=== PATIENT | male | born 1980 | race African-American/Black ===

== ENCOUNTER 2025-03-19 02:12 | Inpatient (IN) | payer OTHER, SELFPAY ==
[2025-03-18 22:46] VITALS: BP 169/135; BMI 32.7
[2025-03-18 23:09] LABS: Hematocrit 37.9 % (39.0-52.0); Hemoglobin 12.6 g/dL (13.0-18.0); Mean Corp Hgb Conc. 33.2 g/dL (33.0-37.0); Mean Corpuscular Volume 85.6 fL (80.0-94.0); Nucleated Red Blood Cells % 0 % (-); Platelet Count 390 10^3/uL (130-400); Red Cell Dist. Width 14.5 % (11.5-14.5)
[2025-03-18 23:31] LABS: ALT (SGPT) 132 U/L (0-50); AST (SGOT) 82 U/L (17-59); Albumin 3.9 g/dl (3.5-5.0); Alkaline Phosphatase 81 U/L (38-126); Blood Urea Nitrogen 18 mg/dl (9-20); Calcium 9.2 mg/dl (8.4-10.2); Carbon Dioxide 26 mmol/L (22-30); Chloride 105 mmol/L (98-107); Estimated Creatinine Clearance 119 ml/min; Glucose 133 mg/dl (70-99); Potassium 3.6 mmol/L (3.5-5.1); Sodium 137 mmol/L (135-145); Total Protein 6.6 g/dl (6.3-8.2); eGFR > 60.00
[2025-03-18 23:54] LABS: Troponin I 0.057 ng/ml
[2025-03-19] VITALS (10 sets, daily range): BP systolic 105–170; BP diastolic 62–127; BMI 30.8
--- NOTE | 2025-03-19 00:45 | ED.GENMED ---
History of Present Illness
General
Chief Complaint: Breathing Problem
Source: patient
Exam Limitations: none
Time Seen by Provider: 03/18/25 23:16
Nursing documentation reviewed up to this point in time: agreed with
History of Present Illness
History of Present Illness:
The patient is a pleasant 44-year-old man with past medical history of CHF who comes in with complaints of gradual onset worsening shortness of breath for about 5 days. Patient reports that just getting up and walking around makes him completely
short of breath, which is unusual for him. He also notes increased swelling of both of his legs. Patient is not sure why this happened. He reports that he is compliant with his medication. He denies chest pain and fever.
Past History
Past History
ED Past Medical History: CHF, HTN and Seizures
ED Past Surgical History: Cardiac
Social History
Tobacco: Other
Alcohol: Other
Drug: None
Personal: Other
Living: with family
Employment: Other
Family History
Family History: Other
Review of Systems
Review of Systems
Allergies reviewed?: Yes
All Other Systems: ROS reviewed and negative except as documented in HPI and ROS
EENT: Reports no symptoms
Respiratory: Reports trouble breathing
Cardiac: Reports no symptoms
ABD/GI: Reports no symptoms
: Reports no symptoms
Musculoskeletal: Reports edema
Skin: Reports no symptoms
Neurological: Reports no symptoms
Endocrine: Reports no symptoms
Hematologic/Lymphatic: Reports no symptoms
Psychiatric: Reports no symptoms
Phy Exam
Physical Exam
Physical Exam:
Physical Exam
General: no apparent distress, not acutely ill
Neck: supple. no meningeal signs. normal psoterior pharynx
Heart: s1/s2 regular rate and rhythm
Lungs: no acute respiratory distress. Bilateral basilar crackles
Abdomen: normal bowel sounds. not tender. no CVAT
Neuro: alert and oriented. no focal neurological deficits
Skin: no rash
Psychiatric: well kept. interactive and cooperative
Extremities: 1+ pitting edema bilateral lower extremities
Scores
Heart Failure Risk
Heart Failure Risk Score: Not Applicable
Sepsis
Sepsis Screening
Sepsis Assessment: Sepsis Ruled Out
Sepsis Screen
Sepsis Screen: Sepsis Ruled Out
Date: 03/19/25
Time: 00:57
Course
Orders/Labs/Results
Orders:
Orders
03/18/25 22:54
Electrocardiogram (*1) Urgent
Reason for Study: Other
Other Reason for Exam: Respiratory Distress
Cardiac Monitoring- Treatment ONCE
EKG- Treatment ONCE
IV Insert/Care/Rem.- Treatment PRN
CR Chest - 2 Views Urgent
Comment:
Reason For Exam: respiratory distress
O2 Therapy [RESP] Urgent
Titrate/Wean O2 to maintain O2 sat greater than (%): 93
Special Instructions: TO MAINTAIN CONTINUOUS O2 SATS >/= 93%
Pulse Ox/cont/shift [RESP] Urgent
Quantity: 1
Special Instructions: continuous pulse ox
03/18/25 22:55
Complete Blood Count/With Diff Urgent
Comprehensive Metabolic Panel Urgent
NT-proBNP Urgent
Troponin I Urgent
03/19/25 00:46
Furosemide [Lasix] 40 mg IV NOW STA
Potassium Chloride [KCl] 40 meq PO NOW STA
Abnormal Lab Results
03/18/25
22:55
RBC 4.43 L 10^6/uL
(4.70-6.10)
Hgb 12.6 L g/dL
(13.0-18.0)
Hct 37.9 L %
(39.0-52.0)
Absolute Neuts (auto) 7.4 H 10^3/uL
(1.4-6.5)
Lymphocytes % 19.6 L %
(20.5-51.1)
Glucose 133 H mg/dl
(70-99)
Total Bilirubin 1.8 H mg/dl
(0.2-1.3)
AST 82 H U/L
(17-59)
ALT 132 H U/L
(0-50)
Troponin I 0.057 H* ng/ml
03/18/25 22:55
03/18/25 22:55
Vital Signs
Initial and Last Documented VS:
Initial Vital Signs
Temp Pulse Resp BP Pulse Ox
99.0 F 112 27 169/135 97
03/18/25 22:46 03/18/25 22:46 03/18/25 22:46 03/18/25 22:46 03/18/25 22:46
Last Documented Vital Signs
Temp Pulse Resp BP Pulse Ox
99.0 F 105 26 169/135 95
03/18/25 22:46 03/18/25 23:45 03/18/25 23:45 03/18/25 22:46 03/19/25 00:45
MDM/Problems Addressed
Differential Diagnosis Includes:
Acute on chronic CHF, pneumonia, acute coronary syndrome
MDM/Problems Addressed:
Patient presents with acute shortness of breath
Chronic conditions affecting care: Cardiomyopathy
Acute Exacerbation and/or Progression of Chronic Illness:
Patient likely has acute exacerbation of chronic CHF, making him short of breath
*Radiology
Radiology exam reviewed: preliminary read by ED provider (Chest x-ray read by me. Cardiomegaly)
*Pulse Oximetry
SaO2: 95
Oxygen Mode of Delivery: Room air
Patient hypoxic: no
*EKG
Interpreted by ED Provider?: Yes
Interpretation: abnormal
Comparison EKG: no comparison EKG present
Rate: tachycardiac
Rhythm: sinus
[place]: left axis deviation
QRS Pattern: left vent hypertrophy
Ischemia: non-specific ST changes
*Research And Development Scientist Interpretation
Rate: tachycardiac
Interpretation: abnormal
Rhythm: sinus
*Critical Care Note
Total Time (30-74mins, 75-104mins- exclusive of procedures): Not Applicable
Data Reviewed
Source: patient
Patient Management
Social determinants of health affecting care: Living situation and Strong social support
Discussion with other providers: Hospitalist
Update Note
Update Note:
Patient is not septic. He has no fever or sign of infection
ED Attending Note
-
Portions of this chart may have been created with voice recognition software.� Occasional wrong word or��sound alike� substitutions may have occurred due to the inherent limitations of voice recognition software.
Discharge Plan
Departure
Patient Disposition: Admit
Date of Disposition: 03/19/25
Time of Disposition: 00:46
Admit to: Telemetry
Presentation/result/management discussed w/ accepting MD/DO: Hospitalist
Patient with high blood pressure during this ER visit?: Yes
Condition: Good
Covid-19: Not Applicable
Discharge Problem:
Acute exacerbation of CHF (congestive heart failure)
Referrals:
NONE,* [Family Provider, Internal Medicine]
Interventions
Interventions:
*Risk Screen - Suicide Last Done: 03/18/25 22:46
*General Assessment Last Done: 03/18/25 22:46
*Neglect/Abuse Screening Last Done: 03/18/25 22:46
*ED COVID-19 Vaccine History Last Done: 03/18/25 22:46
*ED Influenza Vaccine History Last Done: 03/18/25 22:46
ED- Pulmonary Assessment Last Done: 03/18/25 23:46
Discharge Date and Time
Print Language: MACEDONIAN
[2025-03-19] MEDS: KCL 40 MEQ PO (01:04)
[2025-03-19] MEDS: LASIX 40 MG IV ×3 (01:04→15:59)
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
[2025-03-19] MEDS: ENTRESTO 49 MG/51 MG 1 TAB PO ×2 (06:20→19:46)
[2025-03-19] MEDS: COREG 25 MG PO ×2 (06:20→19:46)
[2025-03-19] MEDS: APRESOLINE 10 MG IV (06:20)
[2025-03-19 06:45] LABS: Hematocrit 36.7 % (39.0-52.0); Hemoglobin 12.2 g/dL (13.0-18.0); Mean Corp Hgb Conc. 33.2 g/dL (33.0-37.0); Mean Corpuscular Volume 85.2 fL (80.0-94.0); Platelet Count 366 10^3/uL (130-400); Red Cell Dist. Width 14.6 % (11.5-14.5)
[2025-03-19 07:32] LABS: Troponin I 0.051 ng/ml
[2025-03-19 07:42] LABS: Blood Urea Nitrogen 16 mg/dl (9-20); Calcium 9.0 mg/dl (8.4-10.2); Carbon Dioxide 24 mmol/L (22-30); Chloride 105 mmol/L (98-107); Estimated Creatinine Clearance > 125 ml/min; Glucose 96 mg/dl (70-99); HDL Cholesterol 25 mg/dl; LDL Cholesterol, Calculated 86 mg/dl; Magnesium 1.8 mg/dl (1.6-2.3); Potassium 3.8 mmol/L (3.5-5.1); Sodium 138 mmol/L (135-145); Very Low Density Lipoprotein 15 mg/dl (0-30); eGFR > 60.00
[2025-03-19 08:24] LABS: Glycohemoglobin (HgbA1c) 5.8 % (4.0-5.9)
--- NOTE | 2025-03-19 08:47 | W.PN.HOSP.TC ---
Today's Communication/Plan
-
IV Lasix
Assessment / Plan
Assessment / Plan
Physical Exam
General: Acutely ill
HEENT: Moist mucous membranes and PERRLA
Respiratory: Other (Bibasilar rales about 1/2 up.)
Cardiac: S1/S2, Regular Rhythm and Tachycardia; No Murmur
GI: Soft, Non Tender, Non Distended and Normal Bowel Sounds
Musculoskeletal: No Clubbing, No Cyanosis and bilateral lower extremity edema
Neuro: AO x 3, no neuro deficits
A/P:
Acute on Chronic HFrEF
Admit for further evaluation and treatment.
? exacerbation triggered by recent URI - now resolved.
IV Lasix BID - patient already notes significant improvement in urine output.
Follow I/Os, daily weights, etc.
Update Echo.
Continue current GDMT including Entresto, spironolactone, etc.
Cardiology evaluation for additional recommendations.
Benign Hypertension
Elevated at present secondary to CHF / volume overload.
Follow for improvement with diuresis.
Continue usual medications and adjust as needed for improved control.
History of Seizure Disorder
Continue Keppra
Anxiety / Depression
Continue trazodone / fluoxetine.
DVT Prophylaxis: Lovenox
Code Status: Full
Anticipated Discharge: 24 - 48 hours
Subjective/Interval History
-
Date of Service: March 19, 2025
Patient continues to have shortness of breath. No chest pain. Afebrile
Objective Data
-
Labs:
Laboratory Results
03/18/25 03/19/25
22:55 06:11
WBC 10.1 9.2
Hgb 12.6 L 12.2 L
Hct 37.9 L 36.7 L
Plt Count 390 366
Sodium 137 138
Potassium 3.6 3.8
Chloride 105 105
Carbon Dioxide 26 24
BUN 18 16
Creatinine 1.0 0.9
Glucose 133 H 96
Calcium 9.2 9.0
Total Bilirubin 1.8 H
AST 82 H
ALT 132 H
Alkaline Phosphatase 81
Vital Signs:
Vital Signs
Temp Pulse Resp BP Pulse Ox
98.6 F 95 16 170/127 96
03/19/25 05:19 03/19/25 06:20 03/19/25 05:19 03/19/25 06:20 03/19/25 06:04
I&O
03/18/25 03/19/25 03/20/25
06:59 06:59 06:59
Output Total 1350 / 1350
Balance -1350 / -1350
[2025-03-19] MEDS: KEPPRA 500 MG PO ×2 (09:11→19:46)
[2025-03-19] MEDS: LOW STRENGTH ASPIRIN 81 MG PO (09:11)
[2025-03-19] MEDS: PROZAC 20 MG PO (09:11)
[2025-03-19] MEDS: APRESOLINE 25 MG PO (09:12)
[2025-03-19] MEDS: ALDACTONE 25 MG PO (09:12)
[2025-03-19] MEDS: FARXIGA 10 MG PO (11:32)
[2025-03-19 12:21] LABS: Troponin I 0.040 ng/ml
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
[2025-03-19] MEDS: LOVENOX 40 MG SC (17:30)
[2025-03-19] MEDS: DESYREL 150 MG PO (22:36)
[2025-03-20 03:41] VITALS: BP 108/65
[2025-03-20 05:53] VITALS: BMI 29.8
[2025-03-20 07:52] VITALS: BP 113/74
[2025-03-20 08:14] LABS: Hematocrit 40.5 % (39.0-52.0); Hemoglobin 13.8 g/dL (13.0-18.0); Mean Corp Hgb Conc. 34.1 g/dL (33.0-37.0); Mean Corpuscular Volume 83.3 fL (80.0-94.0); Platelet Count 367 10^3/uL (130-400); Red Cell Dist. Width 14.7 % (11.5-14.5)
[2025-03-20 08:25] LABS: Blood Urea Nitrogen 19 mg/dl (9-20); Calcium 9.0 mg/dl (8.4-10.2); Carbon Dioxide 28 mmol/L (22-30); Chloride 103 mmol/L (98-107); Estimated Creatinine Clearance 93 ml/min; Glucose 95 mg/dl (70-99); Magnesium 1.9 mg/dl (1.6-2.3); Potassium 3.5 mmol/L (3.5-5.1); Sodium 136 mmol/L (135-145); eGFR > 60.00
[2025-03-20] MEDS: ENTRESTO 49 MG/51 MG 1 TAB PO ×2 (09:12→20:10)
[2025-03-20] MEDS: LOW STRENGTH ASPIRIN 81 MG PO (09:12)
[2025-03-20] MEDS: COREG 25 MG PO ×2 (09:12→20:11)
[2025-03-20] MEDS: LASIX 40 MG IV ×2 (09:12→15:58)
[2025-03-20] MEDS: FARXIGA 10 MG PO (09:12)
[2025-03-20] MEDS: KEPPRA 500 MG PO ×2 (09:12→20:10)
[2025-03-20] MEDS: ALDACTONE 25 MG PO (09:13)
[2025-03-20] MEDS: PROZAC 20 MG PO (09:13)
[2025-03-20] MEDS: APRESOLINE 25 MG PO (09:13)
--- NOTE | 2025-03-20 09:13 | W.PN.HOSP.TC ---
Today's Communication/Plan
-
IV Lasix
Assessment / Plan
Assessment / Plan
Physical exam:
General: Well Developed, Well Nourished and No Apparent Distress
HEENT: Normocephalic, Atraumatic and Moist Mucous Membranes
Respiratory: Few coarse crackles; Negative Wheezes, or Rhonchi
Cardiac: Regular Rhythm and S1/S2
GI: Soft, Nontender and Nondistended
Musculoskeletal: No Clubbing, No Cyanosis and No Edema
Neuro: Awake, Alert and Oriented, no neurological deficits
Psych: Calm
A/P:
Acute on chronic HFrEF:
Continue IV Lasix 40 mg twice daily
Continue GDMT including Coreg, Entresto, spironolactone, and ordered hydralazine and Farxiga that can be switched to Jardiance upon discharge.
Cardiology consulted appreciated
Echocardiogram shows EF 10 to 15% and no other significant abnormalities as mentioned above.
Continue aggressive IV diuresis with intensive monitoring
Continue to monitor ins and out and daily weight
Weight down to 99.4 kg today
Elevated troponin:
Troponin downtrending-no need to trend anymore
History of known nonischemic cardiomyopathy and chest pain-free.
Elevated troponin due to non-ischemic myocardial injury due to heart failure
Hypertension:
Continue home antihypertensives
Seizure disorder:
Continue AED, Keppra
Depression and anxiety:
Continue current antidepressants
DVT prophylaxis:
Lovenox SQ
CODE STATUS:
Full code
Total time spent on today's encounter was 52 minutes which included time spent in counseling the patient/family regarding diagnosis and treatment plan as listed above, goals of care, and symptom management. Case was discussed with nursing staff,
specialists, and care coordinators/case management. All labs and imaging personally reviewed by me. Remainder the time spent in detailed review of previous records, lab data, imaging, and other medical provider documentation.
Anticipated Discharge: 24 - 48 hours
Subjective/Interval History
-
Date of Service: March 20, 2025
Patient feels much improved overall. Less shortness of breath. No chest pain
Objective Data
-
Labs:
Laboratory Results
03/20/25
07:19
WBC 9.8
Hgb 13.8
Hct 40.5
Plt Count 367
Sodium 136
Potassium 3.5
Chloride 103
Carbon Dioxide 28
BUN 19
Creatinine 1.1
Glucose 95
Calcium 9.0
Vital Signs:
Vital Signs
Temp Pulse Resp BP Pulse Ox
98.5 F 84 20 113/74 98
03/20/25 07:52 03/20/25 07:52 03/20/25 07:52 03/20/25 07:52 03/20/25 07:52
I&O
03/19/25 03/20/25 03/21/25
06:59 06:59 06:59
Intake Total 1440 / 1440
Output Total 1350 / 1350 6500 / 6500
Balance -1350 / -1350 -5060 / -5060
[2025-03-20 11:11] VITALS: BP 103/68
--- NOTE | 2025-03-20 14:27 | W.PN.CARDCBS ---
Addendum entered and electronically signed by Santana Holguin MD 03/20/25 15:48:
44-year-old man admitted with acute on chronic HFrEF with a EF of 10 to 15%. proBNP 11,000
PMH: nonischemic cardiomyopathy, EF 10 to 15%, ICD, nonobstructive CAD by catheterization 2019, mild to moderate MR, seizure disorder
Current meds: fluoxetine, hydralazine 25 once daily, Keppra 500 BID, spironolactone 25 mg a day, trazodone 150 mg daily, aspirin 81 mg daily, Lovenox, furosemide 40 IV BID, carvedilol 25 BID, Entresto 49-51 BID, Farxiga 10 mg a day
Rest of history per Mesha Becerra. Reviewed in detail and agree unless otherwise specified
103/68, pulse 74, weight 99.5 kg, was 109.3 kg on the 2nd, intake and output -5 L, no acute distress lungs are clear, regular rate rhythm no obvious murmur, JVD okay, no edema, no murmurs
Hemoglobin 13.8, potassium is 3.5, BUN and creatinine are 19 and 1.1
Echo 03/19/2025: EF 10 to 15%, mild AI, ascending aorta 3.8 cm inferior akinesis, severely dilated left atrium, moderate-severe TR, pulmonary artery systolic pressure is 59 mmHg, RV hypokinesis, ICD wire, mild mitral regurgitation
ECG sinus rhythm, left axis deviation, LVH with QRS widening/incomplete left bundle branch block, left atrial enlargement
Impression:
Acute on chronic HFrEF with markedly reduced EF
Nonischemic cardiomyopathy single-chamber ICD
Other diagnoses as below. Reviewed in detail and agree unless otherwise specified
Plan:
He is improving, not quite yet at dry weight.
Probably could transition to oral furosemide in AM.
His medical regimen overall looks good. Digoxin could be considered.
He has an outpatient gluing machine adjuster follow-up to them. Defer to primary gluing machine adjuster as to whether patient should be referred for transplant evaluation/advanced heart failure therapies.
He has a conduction delay but probably not a candidate for upgrade of device to BRAND ADVISOR or conduction system pacing.
We will continue to follow.
Original Note:
Today's Communication / Plan
-
Continue with Lasix 40 mg IV BID diuresis
Patient is asking to go home on Lasix PO instead of his preadmission dose of Bumex PO
Impression / Plan
-
PCP: Shani WHEELER in [place]
Cardiology: Dr. Bronson Page at [facility]
Impression:
Admitted with acute HFrEF 03/19/2025
Acute HFrEF
NICM EF 10 to 15% by echo 03/19/2025
Previously on home milrinone therapy in 2021 that was eventually stopped
Nonobstructive CAD by cardiac catheterization at [facility] 02/2020
Elevated troponin
[employer] single-chamber ICD
Family history of cardiomyopathy
Mild to moderate MR by echo 06/2022
Echo 03/2021: [facility] study, EF 10 to 15%, mild MR, RV dysfunction
Echo 06/2022 EF 13% with mild to moderate MR, moderate TR with moderate PHTN
Echo 03/19/2025: EF 10 to 15%, mild aortic regurgitation, mildly dilated ascending aorta up to 3.8 cm, inferior akinesis and LV wall motion is diffusely hypokinetic, LV cavity size 6.9 cm, mild concentric LVH, moderate to severe TR with PAP 59 mmHg,
RV systolic function mildly decreased
Plan:
-Patient admitted with acute on chronic HFrEF 03/19/2025
-Weight is down 8 lbs overnight with Lasix 40 mg IV BID diuresis. Patient was taking Bumex 2 mg PO daily prior to admission. Patient is asking to go home on Lasix instead of Bumex and reports that he was previously on Lasix and had decreased
effectiveness and switched to Bumex, but that was years ago.
-Dry weight unknown, patient thought his dry weight was 230 lbs. We will need to establish new dry weight at discharge.
-Patient has a known nonischemic CM with EF in the 10 to 15% range as far back as 2020. Cardiac cath at [facility] in 2019 showed nonobstructive disease.
-Patient has a single-chamber ICD in place which will not track atrial arrhythmia or heart failure data.
-Telemetry reviewed by me shows SR without arrhythmia 03/20/2025
-Patient is on a good regimen of GDMT and by review of records going back as far as 2020 he has been on a reasonable regimen. Patient was even on home milrinone for period of time in 2020, but has been off of that regimen since at least 2021.
-Outpatient dose of Coreg 25 mg BID has been continued
-Outpatient dose of Entresto 24/26 mg BID has been continued
-Outpatient dose of spironolactone 25 mg daily has been continued
-Farxiga 10 mg daily ordered by me back on 03/19/2025 due to formulary reasons, but upon discharge patient should be restarted on Jardiance 10 mg daily and he will need an updated prescription for this.
-Initial troponin was 0.057 and trended down thereafter. Patient denies any chest pain. Patient has a history of nonischemic CM with nonobstructive CAD by cardiac catheterization as part of his initial workup back in 2019. Will manage this as a
nonischemic myocardial injury troponin elevation in the setting of acute HF.
-I called down to [facility] to arrange for a digital scale to be delivered to the patient in his room for home use.
HPI: Patient came to the ER with complaints of increasing SOB and edema prompting admission for acute HF and cardiology consultation. Patient generally follows with Dr. Bronson Page up at [facility]. While patient was briefly incarcerated
last year he saw a gluing machine adjuster with our office 04/01/2024 and at that time we obtained records from Dr. Page's office. Records reviewed in detail by me and summarized above. Patient has known nonischemic cardiomyopathy since at least 2019 with
EF 10 to 15% by an echo 03/2021. Patient previously had some of his workup done at [facility] including cardiac catheterization there in 2019 that showed nonobstructive disease. Patient later had hospitalization in 2020 where he was started on milrinone
therapy and discharged to rehab for chronic milrinone therapy. He also had a [employer] single-chamber ICD implanted at that time. Later in 2021 patient had a repeat RHC that showed compensated filling pressures and milrinone was stopped.
Patient then had periods of homelessness and incarceration, but is now living independently and working. Patient says that he noticed his typical symptoms of acute HF including SOB, ALMANZAR and orthopnea prompting him to call 911 last night. In the ER
his proBNP was 11,000 without previous for comparison and CXR showed mild CHF.
Progress Note - Leakage Tester
Subjective
Date of Service: March 20, 2025
Patient feels some symptomatic improvement
Objective
Labs:
03/20/25 07:19
03/20/25 07:19
Labs
Hgb 13.8 g/dL (13.0-18.0) 03/20/25 07:19
Hct 40.5 % (39.0-52.0) 03/20/25 07:19
Plt Count 367 10^3/uL (130-400) 03/20/25 07:19
Sodium 136 mmol/L (135-145) 03/20/25 07:19
Potassium 3.5 mmol/L (3.5-5.1) 03/20/25 07:19
BUN 19 mg/dl (9-20) 03/20/25 07:19
Creatinine 1.1 mg/dL (0.7-1.3) 03/20/25 07:19
Glucose 95 mg/dl (70-99) 03/20/25 07:19
Troponins
03/18/25 03/19/25 03/19/25
22:55 06:11 11:47
Troponin I 0.057 H* 0.051 H* 0.040 H*
03/19/25
18:11
Troponin I Cancelled
Vital Signs and I&O:
Vital Signs
Temp Pulse Resp BP Pulse Ox
98.6 F 74 20 103/68 92
03/20/25 11:11 03/20/25 11:11 03/20/25 11:11 03/20/25 11:11 03/20/25 11:11
Vital Signs
Temp Pulse Resp BP Pulse Ox
98.6 F 74 20 103/68 92
03/20/25 11:11 03/20/25 11:11 03/20/25 11:11 03/20/25 11:11 03/20/25 11:11
Intake & Output
03/18/25 03/19/25 03/20/25 03/21/25
06:59 06:59 06:59 06:59
Intake Total 1440 / 1440
Output Total 1350 / 1350 6500 / 6500
Balance -1350 / -1350 -5060 / -5060
Physical Exam
Physical Exam
GEN: NAD, AAO x 3
LUNGS: RA. No wheeze
CV: SR on telemetry.
[2025-03-20 15:33] VITALS: BP 113/73
[2025-03-20] MEDS: LOVENOX 40 MG SC (16:53)
[2025-03-20 19:40] VITALS: BP 120/81
[2025-03-20] MEDS: APRESOLINE 12.5 MG PO (20:11)
[2025-03-20] MEDS: KCL 40 MEQ PO (21:47)
[2025-03-20] MEDS: DESYREL 150 MG PO (21:47)
[2025-03-20 23:33] VITALS: BP 109/53
[2025-03-21 03:45] VITALS: BP 101/68
[2025-03-21 06:00] VITALS: BMI 29.3
[2025-03-21 07:00] VITALS: BP 109/75
[2025-03-21] MEDS: ALDACTONE 25 MG PO (08:26)
[2025-03-21] MEDS: FARXIGA 10 MG PO (08:26)
[2025-03-21] MEDS: COREG 25 MG PO ×2 (08:26→20:07)
[2025-03-21] MEDS: ENTRESTO 49 MG/51 MG 1 TAB PO ×2 (08:26→20:09)
[2025-03-21] MEDS: LOW STRENGTH ASPIRIN 81 MG PO (08:27)
[2025-03-21] MEDS: APRESOLINE 12.5 MG PO ×2 (08:27→20:08)
[2025-03-21] MEDS: KEPPRA 500 MG PO ×2 (08:27→20:07)
[2025-03-21] MEDS: LASIX 40 MG IV ×2 (08:28→16:05)
[2025-03-21] MEDS: PROZAC 20 MG PO (08:28)
[2025-03-21 09:15] LABS: Blood Urea Nitrogen 17 mg/dl (9-20); Calcium 9.1 mg/dl (8.4-10.2); Carbon Dioxide 29 mmol/L (22-30); Chloride 104 mmol/L (98-107); Estimated Creatinine Clearance 93 ml/min; Glucose 102 mg/dl (70-99); Potassium 3.8 mmol/L (3.5-5.1); Sodium 136 mmol/L (135-145); eGFR > 60.00
--- NOTE | 2025-03-21 09:40 | CM ---
Addendum entered by Meliza Lopez 03/21/25 09:46:
RX; [facility]
Original Note:
IA completed. Pt is independent in ADLs and IADLs. Lives alone in an apartment with 12 steps at the entrance.NO hx of DME, home O2 or HH. No insecurities identified. Confirmed RX, insurance and drug coverage.
Confirmed there is no PCP, resource given_[facility].
Pt is employed therefore he is in ineligible for VN/CHF program.
Plan: home no needs
--- NOTE | 2025-03-21 11:56 | W.PN.HOSP.TC ---
Today's Communication/Plan
-
IV diuresis
Assessment / Plan
Assessment / Plan
Physical exam:
General: Well Developed, Well Nourished and No Apparent Distress
HEENT: Normocephalic, Atraumatic and Moist Mucous Membranes
Respiratory: No crackles; Negative Wheezes, or Rhonchi
Cardiac: Regular Rhythm and S1/S2
GI: Soft, Nontender and Nondistended
Musculoskeletal: No Clubbing, No Cyanosis and No Edema
Neuro: Awake, Alert and Oriented, no neurological deficits
Psych: Calm
A/P:
Acute on chronic HFrEF:
Continue IV Lasix 40 mg twice daily
Continue GDMT including Coreg, Entresto, spironolactone, and ordered hydralazine and Farxiga that can be switched to Jardiance upon discharge.
Cardiology consulted appreciated
Echocardiogram shows EF 10 to 15% and no other significant abnormalities as mentioned above.
Continue aggressive IV diuresis with intensive monitoring
Continue to monitor ins and out and daily weight
Weight down to 98 kg today
Discharge planning once cleared by cardiology
Elevated troponin:
Troponin downtrending-no need to trend anymore
History of known nonischemic cardiomyopathy and chest pain-free.
Elevated troponin due to non-ischemic myocardial injury due to heart failure
Hypertension:
Continue home antihypertensives
Seizure disorder:
Continue AED, Keppra
Depression and anxiety:
Continue current antidepressants
DVT prophylaxis:
Lovenox SQ
CODE STATUS:
Full code
Total time spent on today's encounter was 35 minutes which included time spent in counseling the patient/family regarding diagnosis and treatment plan as listed above, goals of care, and symptom management. Case was discussed with nursing staff,
specialists, and care coordinators/case management. All labs and imaging personally reviewed by me. Remainder the time spent in detailed review of previous records, lab data, imaging, and other medical provider documentation.
Anticipated Discharge: 24 - 48 hours
Subjective/Interval History
-
Date of Service: March 21, 2025
Patient feels better overall. Less shortness of breath. No chest pain.
Objective Data
-
Labs:
Laboratory Results
03/21/25
08:22
Sodium 136
Potassium 3.8
Chloride 104
Carbon Dioxide 29
BUN 17
Creatinine 1.1
Glucose 102 H
Calcium 9.1
Vital Signs:
Vital Signs
Temp Pulse Resp BP Pulse Ox
98.4 F 71 20 109/75 95
03/21/25 07:00 03/21/25 08:26 03/21/25 07:00 03/21/25 08:26 03/21/25 08:15
I&O
03/20/25 03/21/25 03/22/25
06:59 06:59 06:59
Intake Total 1440 / 1440 1080 / 1080 240 / 240
Output Total 6500 / 6500 3705 / 3705 775 / 775
Balance -5060 / -5060 -2625 / -2625 -535 / -535
--- NOTE | 2025-03-21 13:45 | W.PN.CARDCBS ---
Addendum entered and electronically signed by Santana Holguin MD 03/21/25 16:40:
44-year-old man admitted with acute on chronic HFrEF with a EF of 10 to 15%. proBNP 11,000
PMH: nonischemic cardiomyopathy, EF 10 to 15%, ICD, nonobstructive CAD by catheterization 2019, mild to moderate MR, seizure disorder
Current meds: fluoxetine, hydralazine 12.5 twice daily, Keppra 500 BID, spironolactone 25 mg a day, trazodone 150 mg daily, aspirin 81 mg daily, Lovenox, furosemide 40 IV BID, carvedilol 25 BID, Entresto 49-51 BID, Farxiga 10 mg a day. Outpatient
diuretic had been Bumex 2 mg twice a day, equivalent to furosemide 80 mg twice daily. He wants to go furosemide.
97/66, pulse 71,Weight is 98.1 kg, down 1.3 kg, lungs are clear, regular rate and rhythm, soft S3, abdomen benign extremities without clubbing cyanosis or edema
Impression:
Acute on chronic HFrEF with markedly reduced EF
Nonischemic cardiomyopathy single-chamber ICD
Other diagnoses as below. Reviewed in detail and agree unless otherwise specified
Plan:
Overall improved, will switch to oral furosemide 120 mg twice daily as outpatient Bumex dose and admission was 2 mg twice daily
Otherwise, looks well blood pressure is relatively low. He is on very solid medical regimen.
Anticipate discharge in a.m.
Original Note:
Today's Communication / Plan
-
Replete potassium
Check BMP and mag in a.m.
Consider Transition to oral Bumex in am
Outpatient cardiology follow-up has been arranged with Dr. Mack office
Impression / Plan
-
PCP: Shani WHEELER in [place]
Cardiology: Dr. Bronson Page at [facility]
Impression:
Admitted with acute HFrEF 03/19/2025
Acute HFrEF
NICM EF 10 to 15% by echo 03/19/2025
Previously on home milrinone therapy in 2021 that was eventually stopped
Nonobstructive CAD by cardiac catheterization at [facility] 02/2020
Elevated troponin
[employer] single-chamber ICD
Family history of cardiomyopathy
Mild to moderate MR by echo 06/2022
Echo 03/2021: [facility] study, EF 10 to 15%, mild MR, RV dysfunction
Echo 06/2022 EF 13% with mild to moderate MR, moderate TR with moderate PHTN
Echo 03/19/2025: EF 10 to 15%, mild aortic regurgitation, mildly dilated ascending aorta up to 3.8 cm, inferior akinesis and LV wall motion is diffusely hypokinetic, LV cavity size 6.9 cm, mild concentric LVH, moderate to severe TR with PAP 59 mmHg,
RV systolic function mildly decreased
Cardiac catheterization at [facility] in 2019 with nonobstructive CAD
Plan:
-Patient admitted 03/19/2025 with acute on chronic HFrEF, proBNP 11,000, EF 10-15% with longstanding nonischemic cardiomyopathy as far back as 2020
- Symptomatically improving. Weight is down at least 11 lbs since admission with Lasix 40 mg IV BID diuresis. Likely transition to oral Bumex 03/22/2025. Patient was taking Bumex 2 mg PO daily prior to admission.
-Dry weight unknown, patient thought his dry weight was 230 lbs. weight currently 216 pounds
-BUN and creatinine stable 17/.1. K 3.8. Would replete. Check BMP and mag in AM with ongoing diuresis
-Cardiac cath at [facility] in 2019 showed nonobstructive disease.
-Patient has a single-chamber ICD in place which will not track atrial arrhythmia or heart failure data.
-Telemetry reviewed by me shows SR without arrhythmia 03/21/2025
-Patient is on a good regimen of GDMT going back to 2020. Patient was even on home milrinone for period of time in 2020, but has been off of that regimen since at least 2021.
-Continue Outpatient dose of Coreg 25 mg BID, Entresto 24/26 mg BID and spironolactone 25 mg daily. Patient on Jardiance 10 mg as outpatient, receiving Farxiga during hospitalization due to formulary issues
-Hydralazine 12.5 mg twice daily added this admission
-Initial troponin was 0.057 and trended down thereafter. Patient denies any chest pain. Patient has a history of nonischemic CM with nonobstructive CAD by cardiac catheterization as part of his initial workup back in 2019. Will manage this as a
nonischemic myocardial injury troponin elevation in the setting of acute HF.
HPI: Patient came to the ER with complaints of increasing SOB and edema prompting admission for acute HF and cardiology consultation. Patient generally follows with Dr. Bronson Page up at [facility]. While patient was briefly incarcerated
last year he saw a car head liner installer with our office 04/01/2024 and at that time we obtained records from Dr. Page's office. Records reviewed in detail by me and summarized above. Patient has known nonischemic cardiomyopathy since at least 2019 with
EF 10 to 15% by an echo 03/2021. Patient previously had some of his workup done at [facility] including cardiac catheterization there in 2019 that showed nonobstructive disease. Patient later had hospitalization in 2020 where he was started on milrinone
therapy and discharged to rehab for chronic milrinone therapy. He also had a [employer] single-chamber ICD implanted at that time. Later in 2021 patient had a repeat RHC that showed compensated filling pressures and milrinone was stopped.
Patient then had periods of homelessness and incarceration, but is now living independently and working. Patient says that he noticed his typical symptoms of acute HF including SOB, ALMANZAR and orthopnea prompting him to call 911 last night. In the ER
his proBNP was 11,000 without previous for comparison and CXR showed mild CHF.
Progress Note - Saw Filer
Subjective
Date of Service: March 21, 2025
Patient seen and examined. Patient reports symptomatically he is feeling significantly better. He has been able to lie flat without having a cough. Ambulating back and forth to the bathroom without shortness of breath.
Objective
Labs:
03/20/25 07:19
03/21/25 08:22
Labs
Hgb 13.8 g/dL (13.0-18.0) 03/20/25 07:19
Hct 40.5 % (39.0-52.0) 03/20/25 07:19
Plt Count 367 10^3/uL (130-400) 03/20/25 07:19
Sodium 136 mmol/L (135-145) 03/21/25 08:22
Potassium 3.8 mmol/L (3.5-5.1) 03/21/25 08:22
BUN 17 mg/dl (9-20) 03/21/25 08:22
Creatinine 1.1 mg/dL (0.7-1.3) 03/21/25 08:22
Glucose 102 mg/dl (70-99) H 03/21/25 08:22
Troponins
03/18/25 03/19/25 03/19/25
22:55 06:11 11:47
Troponin I 0.057 H* 0.051 H* 0.040 H*
03/19/25
18:11
Troponin I Cancelled
Vital Signs and I&O:
Vital Signs
Temp Pulse Resp BP Pulse Ox
98.4 F 71 20 109/75 95
03/21/25 07:00 03/21/25 08:26 03/21/25 07:00 03/21/25 08:26 03/21/25 08:15
Vital Signs
Temp Pulse Resp BP Pulse Ox
98.4 F 71 20 109/75 95
03/21/25 07:00 03/21/25 08:26 03/21/25 07:00 03/21/25 08:26 03/21/25 08:15
Intake & Output
03/19/25 03/20/25 03/21/25 03/22/25
06:59 06:59 06:59 06:59
Intake Total 1440 / 1440 1080 / 1080 240 / 240
Output Total 1350 / 1350 6500 / 6500 3705 / 3705 1225 / 1225
Balance -1350 / -1350 -5060 / -5060 -2625 / -2625 -985 / -985
Physical Exam
Physical Exam
GEN: No distress, awake, Ox3
HEENT: supple, anicteric, mmm
LUNGS: CTA, no wheezes/rales, on room air
CV: Reg, S1/S2, 1/6 syst LSB murmur
ABD: soft, BS+, NT/ND
EXT: No edema, clubbing or cyanosis
NEURO: Gross non-focal
SKIN: No rash, warm, dry, pink
[2025-03-21] MEDS: KCL 40 MEQ PO (14:01)
[2025-03-21 15:00] VITALS: BP 96/67
[2025-03-21] MEDS: LOVENOX 40 MG SC (16:49)
[2025-03-21 20:10] VITALS: BP 106/68
[2025-03-21] MEDS: DESYREL 150 MG PO (21:40)
[2025-03-21 23:49] VITALS: BP 103/74
[2025-03-22 03:26] VITALS: BP 113/73
[2025-03-22 06:00] VITALS: BMI 29.5
[2025-03-22 07:00] VITALS: BP 112/81
[2025-03-22 08:14] LABS: Blood Urea Nitrogen 22 mg/dl (9-20); Calcium 9.6 mg/dl (8.4-10.2); Carbon Dioxide 28 mmol/L (22-30); Chloride 103 mmol/L (98-107); Estimated Creatinine Clearance 93 ml/min; Glucose 97 mg/dl (70-99); Magnesium 2.3 mg/dl (1.6-2.3); Potassium 4.3 mmol/L (3.5-5.1); Sodium 136 mmol/L (135-145); eGFR > 60.00
[2025-03-22] MEDS: KEPPRA 500 MG PO ×2 (08:29→21:05)
[2025-03-22] MEDS: LOW STRENGTH ASPIRIN 81 MG PO (08:29)
[2025-03-22] MEDS: ENTRESTO 49 MG/51 MG 1 TAB PO ×2 (08:29→21:00)
[2025-03-22] MEDS: FARXIGA 10 MG PO (08:30)
[2025-03-22] MEDS: PROZAC 20 MG PO (08:30)
[2025-03-22] MEDS: LASIX 80 MG PO ×2 (08:30→15:03)
[2025-03-22] MEDS: COREG 25 MG PO ×2 (08:30→21:07)
[2025-03-22] MEDS: APRESOLINE 12.5 MG PO ×2 (08:30→21:06)
[2025-03-22] MEDS: ALDACTONE 25 MG PO (08:31)
--- NOTE | 2025-03-22 08:38 | W.PN.CARDCBS ---
Today's Communication / Plan
-
Okay for discharge from my standpoint, though patient feels he may not be ready, defer to attending after their evaluation
See instructions for discharge
Impression / Plan
-
PCP: Shani WHEELER in [place]
Cardiology: Dr. Bronson Page at [facility]
Impression:
Admitted with acute HFrEF 03/19/2025
Acute HFrEF
NICM EF 10 to 15% by echo 03/19/2025
Previously on home milrinone therapy in 2021 that was eventually stopped
Nonobstructive CAD by cardiac catheterization at [facility] 02/2020
Elevated troponin
[employer] single-chamber ICD
Family history of cardiomyopathy
Mild to moderate MR by echo 06/2022
Echo 03/2021: [facility] study, EF 10 to 15%, mild MR, RV dysfunction
Echo 06/2022 EF 13% with mild to moderate MR, moderate TR with moderate PHTN
Echo 03/19/2025: EF 10 to 15%, mild aortic regurgitation, mildly dilated ascending aorta up to 3.8 cm, inferior akinesis and LV wall motion is diffusely hypokinetic, LV cavity size 6.9 cm, mild concentric LVH, moderate to severe TR with PAP 59 mmHg,
RV systolic function mildly decreased
Cardiac catheterization at [facility] in 2019 with nonobstructive CAD
Plan:
On exam he appears euvolemic.
He says he does not feel great, is willing to go home but not eager. I am okay with discharge, but do not object if attending wishes to keep him till tomorrow.
He wanted to transition to furosemide from Bumex. He was on Bumex 2 mg twice daily. The equivalent dose would be furosemide 80 mg twice daily and we will make furosemide 120 mg p.o. twice daily given that he was in overt heart failure on Bumex 2
mg p.o. twice daily
Digoxin is regaining a role in the treatment of heart failure, with the most recent study DIGIT-HF suggesting substantial benefit. We will add digoxin 250 mcg daily and check a dig level and BMP in 1 week.His potassium was 4.3 this morning with a
magnesium of 2.3.
Patient to follow-up to outpatient inspection clerk.
Recommended cardiac medications at discharge:
Spironolactone 25 mg daily
Stop aspirin, theoretically contraindicated in nonischemic cardiomyopathy
Carvedilol 25 mg daily
Entresto 49/51 twice daily
Dapagliflozin 10 mg daily
Hydralazine 12.5 mg twice daily
Furosemide 120 mg twice daily
Digoxin 250 mcg daily
BMP, proBNP, digoxin level in 1 week
Follow-up to patient's inspection clerk within 1 to 2 weeks
HPI: Patient came to the ER with complaints of increasing SOB and edema prompting admission for acute HF and cardiology consultation. Patient generally follows with Dr. Bronson Page up at [facility]. While patient was briefly incarcerated
last year he saw a inspection clerk with our office 04/01/2024 and at that time we obtained records from Dr. Page's office. Records reviewed in detail by me and summarized above. Patient has known nonischemic cardiomyopathy since at least 2019 with
EF 10 to 15% by an echo 03/2021. Patient previously had some of his workup done at [facility] including cardiac catheterization there in 2019 that showed nonobstructive disease. Patient later had hospitalization in 2020 where he was started on milrinone
therapy and discharged to rehab for chronic milrinone therapy. He also had a [employer] single-chamber ICD implanted at that time. Later in 2021 patient had a repeat RHC that showed compensated filling pressures and milrinone was stopped.
Patient then had periods of homelessness and incarceration, but is now living independently and working. Patient says that he noticed his typical symptoms of acute HF including SOB, ALMANZAR and orthopnea prompting him to call 911 last night. In the ER
his proBNP was 11,000 without previous for comparison and CXR showed mild CHF.
Progress Note - Managing Attorney
Subjective
Date of Service: March 22, 2025:
44-year-old man admitted with acute on chronic HFrEF with a EF of 10 to 15%. proBNP 11,000
PMH: nonischemic cardiomyopathy, EF 10 to 15%, ICD, nonobstructive CAD by catheterization 2019, mild to moderate MR, seizure disorder
Current meds: fluoxetine, hydralazine 12.5 twice daily, Keppra 500 BID, spironolactone 25 mg a day, trazodone 150 mg daily, aspirin 81 mg daily, Lovenox, furosemide 40 IV BID, carvedilol 25 BID, Entresto 49-51 BID, Farxiga 10 mg a day. Outpatient
diuretic had been Bumex 2 mg twice a day, equivalent to furosemide 80 mg twice daily. He wants to go furosemide.
112, pulse 69, respiratory rate 16, afebrile, no distress lungs clear, S4, JVD okay, not much edema
Objective
Labs:
03/20/25 07:19
03/22/25 07:11
Labs
Hgb 13.8 g/dL (13.0-18.0) 03/20/25 07:19
Hct 40.5 % (39.0-52.0) 03/20/25 07:19
Plt Count 367 10^3/uL (130-400) 03/20/25 07:19
Sodium 136 mmol/L (135-145) 03/22/25 07:11
Potassium 4.3 mmol/L (3.5-5.1) 03/22/25 07:11
BUN 22 mg/dl (9-20) H 03/22/25 07:11
Creatinine 1.1 mg/dL (0.7-1.3) 03/22/25 07:11
Glucose 97 mg/dl (70-99) 03/22/25 07:11
Troponins
03/19/25 03/19/25
11:47 18:11
Troponin I 0.040 H* Cancelled
Vital Signs and I&O:
Vital Signs
Temp Pulse Resp BP Pulse Ox
36.8 C 69 16 112 98
03/22/25 07:00 03/22/25 08:29 03/22/25 07:00 03/22/25 08:29 03/22/25 07:00
Vital Signs
Temp Pulse Resp BP Pulse Ox
36.8 C 69 16 112/81 98
03/22/25 07:00 03/22/25 08:29 03/22/25 07:00 03/22/25 08:29 03/22/25 07:00
Intake & Output
03/20/25 03/21/25 03/22/25 03/23/25
07:59 07:59 07:59 07:59
Intake Total 1440 / 1440 1080 / 1080 720 / 720
Output Total 6500 / 6500 3705 / 3705 2049 / 2049
Balance -5060 / -5060 -2625 / -2625 -1330 / -1330
Physical Exam
Physical Exam
See above
--- NOTE | 2025-03-22 10:53 | W.PN.HOSP.TC ---
Today's Communication/Plan
-
Diuresis. D/C plan
Assessment / Plan
Assessment / Plan
Physical exam:
General: Well Developed, Well Nourished and No Apparent Distress
HEENT: Normocephalic, Atraumatic and Moist Mucous Membranes
Respiratory: No crackles; Negative Wheezes, or Rhonchi
Cardiac: Regular Rhythm and S1/S2
GI: Soft, Nontender and Nondistended
Musculoskeletal: No Clubbing, No Cyanosis and No Edema
Neuro: Awake, Alert and Oriented, no neurological deficits
Psych: Calm
A/P:
Acute on chronic HFrEF:
Continue IV Lasix 120 mg twice daily--> switched to P.O. Lasix 80 mg BID per cardiology.
Continue GDMT including Coreg, Entresto, spironolactone, and ordered hydralazine and Farxiga that can be switched to Jardiance upon discharge.
Cardiology consulted appreciated
Echocardiogram shows EF 10 to 15% and no other significant abnormalities as mentioned above.
Continue aggressive IV diuresis with intensive monitoring
Continue to monitor ins and out and daily weight
Weight down to 98 kg today
Discharge planning once cleared by cardiology--> either later today or in am (patient feels not ready today so likely tomorrow)
Elevated troponin:
Troponin downtrending-no need to trend anymore
History of known nonischemic cardiomyopathy and chest pain-free.
Elevated troponin due to non-ischemic myocardial injury due to heart failure
Hypertension:
Continue home antihypertensives
Seizure disorder:
Continue AED, Keppra
Depression and anxiety:
Continue current antidepressants
DVT prophylaxis:
Lovenox SQ
CODE STATUS:
Full code
Total time spent on today's encounter was 35 minutes which included time spent in counseling the patient/family regarding diagnosis and treatment plan as listed above, goals of care, and symptom management. Case was discussed with nursing staff,
specialists, and care coordinators/case management. All labs and imaging personally reviewed by me. Remainder the time spent in detailed review of previous records, lab data, imaging, and other medical provider documentation.
Anticipated Discharge: Within 24 hours
Subjective/Interval History
-
Date of Service: March 22, 2025
Improved overall, less sob.
Objective Data
-
Labs:
Laboratory Results
03/22/25
07:11
Sodium 136
Potassium 4.3
Chloride 103
Carbon Dioxide 28
BUN 22 H
Creatinine 1.1
Glucose 97
Calcium 9.6
Vital Signs:
Vital Signs
Temp Pulse Resp BP Pulse Ox
98.2 F 69 16 112/81 98
03/22/25 07:00 03/22/25 08:29 03/22/25 07:00 03/22/25 08:29 03/22/25 08:15
I&O
03/21/25 03/22/25 03/23/25
06:59 06:59 06:59
Intake Total 1080 / 1080 720 / 720
Output Total 3705 / 3705 1225 / 1225 825 / 825
Balance -2625 / -2625 -505 / -505 -825 / -825
[2025-03-22 11:00] VITALS: BP 99/63
[2025-03-22] MEDS: LANOXIN 250 MCG PO (13:27)
[2025-03-22 15:27] VITALS: BP 92/60
[2025-03-22] MEDS: LOVENOX 40 MG SC (18:03)
[2025-03-22 19:55] VITALS: BP 105/73
[2025-03-22] MEDS: DESYREL 150 MG PO (21:01)
[2025-03-22 23:22] VITALS: BP 100/68
[2025-03-23] VITALS (8 sets, daily range): BP systolic 90–113; BP diastolic 54–78; BMI 29.6
[2025-03-23 07:41] LABS: Blood Urea Nitrogen 27 mg/dl (9-20); Calcium 9.4 mg/dl (8.4-10.2); Carbon Dioxide 26 mmol/L (22-30); Chloride 102 mmol/L (98-107); Estimated Creatinine Clearance 93 ml/min; Glucose 105 mg/dl (70-99); Potassium 4.0 mmol/L (3.5-5.1); Sodium 135 mmol/L (135-145); eGFR > 60.00
--- NOTE | 2025-03-23 07:46 | W.PN.HOSP.TC ---
Today's Communication/Plan
-
IV Lasix.
Assessment / Plan
Assessment / Plan
Physical exam:
General: Acute and chronically ill
HEENT: Normocephalic, Atraumatic and Moist Mucous Membranes
Respiratory: No crackles; Negative Wheezes, or Rhonchi
Cardiac: Regular Rhythm and S1/S2
GI: Soft, Nontender and Nondistended
Musculoskeletal: No Clubbing, No Cyanosis. There is bilateral lower extremity edema
Neuro: Awake, Alert and Oriented, no neurological deficits
Psych: Calm
A/P:
Acute on chronic HFrEF:
On diuretics per cardiology recommendations--> discussed with cardiology today and planning to switch back to IV Lasix today.
Continue GDMT including Coreg, Entresto, spironolactone, and ordered hydralazine and Farxiga that can be switched to Jardiance upon discharge.
Cardiology consulted appreciated
Echocardiogram shows EF 10 to 15% and no other significant abnormalities as mentioned above.
Continue aggressive IV diuresis with intensive monitoring
Continue to monitor ins and out and daily weight
Weight is going up today
Discussed with cardiology via [facility] text and cardiology does not recommend discharge yet. Will continue diuresis and reevaluate discharge readiness tomorrow.
Elevated troponin:
Troponin downtrending-no need to trend anymore
History of known nonischemic cardiomyopathy and chest pain-free.
Elevated troponin due to non-ischemic myocardial injury due to heart failure
Hypertension:
Continue home antihypertensives
Seizure disorder:
Continue AED, Keppra
Depression and anxiety:
Continue current antidepressants
DVT prophylaxis:
Lovenox SQ
CODE STATUS:
Full code
Total time spent on today's encounter was 52 minutes which included time spent in counseling the patient/family regarding diagnosis and treatment plan as listed above, goals of care, and symptom management. Case was discussed with nursing staff,
specialists, and care coordinators/case management. All labs and imaging personally reviewed by me. Remainder the time spent in detailed review of previous records, lab data, imaging, and other medical provider documentation.
Anticipated Discharge: Within 24 hours
Subjective/Interval History
-
Date of Service: March 23, 2025
Patient feels about the same today but his weight is going up. No chest pain. Afebrile
Objective Data
-
Labs:
Laboratory Results
03/23/25
06:29
Sodium 135
Potassium 4.0
Chloride 102
Carbon Dioxide 26
BUN 27 H
Creatinine 1.1
Glucose 105 H
Calcium 9.4
Vital Signs:
Vital Signs
Temp Pulse Resp BP Pulse Ox
97.7 F 62 16 98/65 97
03/23/25 03:59 03/23/25 03:59 03/23/25 03:59 03/23/25 03:59 03/23/25 03:59
I&O
03/22/25 03/23/25 03/24/25
06:59 06:59 06:59
Intake Total 720 / 720 720 / 720
Output Total 1225 / 1225 3375 / 3375
Balance -505 / -505 -2655 / -2655
[2025-03-23] MEDS: KCL 40 MEQ PO (08:25)
[2025-03-23] MEDS: ZAROXOLYN 5 MG PO (08:25)
[2025-03-23] MEDS: LASIX 80 MG IV (08:25)
[2025-03-23] MEDS: KEPPRA 500 MG PO ×2 (08:26→20:13)
[2025-03-23] MEDS: LOW STRENGTH ASPIRIN 81 MG PO (08:26)
[2025-03-23] MEDS: PROZAC 20 MG PO (08:27)
[2025-03-23] MEDS: LASIX PO (10:17)
[2025-03-23] MEDS: ENTRESTO 49 MG/51 MG 1 TAB PO ×2 (10:18→20:12)
[2025-03-23] MEDS: ALDACTONE 25 MG PO (10:18)
[2025-03-23] MEDS: FARXIGA 10 MG PO (10:18)
[2025-03-23] MEDS: COREG 25 MG PO (10:18)
[2025-03-23] MEDS: APRESOLINE 12.5 MG PO ×2 (10:18→20:09)
--- NOTE | 2025-03-23 10:54 | CM ---
F/U: Patient discharge with no needs. PLAN: Home No Needs.
[2025-03-23] MEDS: LANOXIN 250 MCG PO (12:04)
[2025-03-23] MEDS: FLUZONE (6 mos+) 2025-2026 FORMULA 0.5 ML IM (12:11)
--- NOTE | 2025-03-23 12:23 | W.PN.CARDCBS ---
Today's Communication / Plan
-
Reassess this afternoon regarding additional Lasix and metolazone
proBNP in a.m.
Continue other meds, decrease carvedilol to 12.5 twice daily
Milrinone?
Impression / Plan
-
PCP: Shani WHEELER in [place]
Cardiology: Dr. Bronson Page at [facility]
Impression:
Admitted with acute HFrEF 03/19/2025
Acute HFrEF
NICM EF 10 to 15% by echo 03/19/2025
Previously on home milrinone therapy in 2021 that was eventually stopped
Nonobstructive CAD by cardiac catheterization at [facility] 02/2020
Elevated troponin
[employer] single-chamber ICD
Family history of cardiomyopathy
Mild to moderate MR by echo 06/2022
Echo 03/2021: [facility] study, EF 10 to 15%, mild MR, RV dysfunction
Echo 06/2022 EF 13% with mild to moderate MR, moderate TR with moderate PHTN
Echo 03/19/2025: EF 10 to 15%, mild aortic regurgitation, mildly dilated ascending aorta up to 3.8 cm, inferior akinesis and LV wall motion is diffusely hypokinetic, LV cavity size 6.9 cm, mild concentric LVH, moderate to severe TR with PAP 59 mmHg,
RV systolic function mildly decreased
Cardiac catheterization at [facility] in 2019 with nonobstructive CAD
Plan:
He is largely unchanged.
Not in acute distress but volume status is still overloaded.
Received IV furosemide and metolazone this morning. Will reassess this afternoon and decide whether or not to continue with IV therapy and metolazone.
Recheck proBNP in AM.
I have decreased carvedilol to 12.5 mg twice daily, added digoxin, overall he is on GDMT to the best of our already. If proBNP is unchanged and he feels poorly, wonder if trial of milrinone would be an option.
HPI: Patient came to the ER with complaints of increasing SOB and edema prompting admission for acute HF and cardiology consultation. Patient generally follows with Dr. Bronson Page up at [facility]. While patient was briefly incarcerated
last year he saw a dye jig operator with our office 04/01/2024 and at that time we obtained records from Dr. Page's office. Records reviewed in detail by me and summarized above. Patient has known nonischemic cardiomyopathy since at least 2019 with
EF 10 to 15% by an echo 03/2021. Patient previously had some of his workup done at [facility] including cardiac catheterization there in 2019 that showed nonobstructive disease. Patient later had hospitalization in 2020 where he was started on milrinone
therapy and discharged to rehab for chronic milrinone therapy. He also had a [employer] single-chamber ICD implanted at that time. Later in 2021 patient had a repeat RHC that showed compensated filling pressures and milrinone was stopped.
Patient then had periods of homelessness and incarceration, but is now living independently and working. Patient says that he noticed his typical symptoms of acute HF including SOB, ALMANZAR and orthopnea prompting him to call 911 last night. In the ER
his proBNP was 11,000 without previous for comparison and CXR showed mild CHF.
Progress Note - Aviation Boatswain'S Mate
Subjective
Date of Service: March 23, 2025:
44-year-old man admitted with acute on chronic HFrEF with a EF of 10 to 15%. proBNP 11,000
PMH: nonischemic cardiomyopathy, EF 10 to 15%, ICD, nonobstructive CAD by catheterization 2019, mild to moderate MR, seizure disorder
Meds: Prozac 20 mg a day, Keppra 500 mg twice daily, spironolactone 25 mg a day, trazodone 150 mg at bedtime, aspirin 81 mg a day, Lovenox, carvedilol 25 mg twice daily, valsartan 49/51 twice daily dapagliflozin 10 mg daily, hydralazine 12.5 mg
twice daily, digoxin 250 mcg noon, furosemide currently written as 120 mg p.o. twice daily, received 80 mg of IV Lasix and metolazone 5 mg this morning
105/72, pulse 67, respiratory rate 12, afebrile, weight is 99 kg, up 0.4 kg, head neck exam unremarkable, lungs relatively clear, S3, JVD okay, abdomen benign extremities without clubbing cyanosis or edema
BUN/creatinine are 27 and 1.1, potassium is 4, proBNP was 11,000 on admission
Objective
Labs:
03/20/25 07:19
03/23/25 06:29
Labs
Hgb 13.8 g/dL (13.0-18.0) 03/20/25 07:19
Hct 40.5 % (39.0-52.0) 03/20/25 07:19
Plt Count 367 10^3/uL (130-400) 03/20/25 07:19
Sodium 135 mmol/L (135-145) 03/23/25 06:29
Potassium 4.0 mmol/L (3.5-5.1) 03/23/25 06:29
BUN 27 mg/dl (9-20) H 03/23/25 06:29
Creatinine 1.1 mg/dL (0.7-1.3) 03/23/25 06:29
Glucose 105 mg/dl (70-99) H 03/23/25 06:29
Vital Signs and I&O:
Vital Signs
Temp Pulse Resp BP Pulse Ox
36.7 C 67 12 105/72 98
03/23/25 10:55 03/23/25 12:04 03/23/25 10:55 03/23/25 10:55 03/23/25 10:55
Vital Signs
Temp Pulse Resp BP Pulse Ox
36.7 C 67 12 105/72 98
03/23/25 10:55 03/23/25 12:04 03/23/25 10:55 03/23/25 10:55 03/23/25 10:55
Intake & Output
03/21/25 03/22/25 03/23/25 03/24/25
07:59 07:59 07:59 07:59
Intake Total 1080 / 1080 720 / 720 720 / 720
Output Total 3705 / 3705 2049 / 2049 2550 / 2550
Balance -2625 / -2625 -1330 / -1330 -1830 / -1829
Physical Exam
Physical Exam
See above
[2025-03-23] MEDS: LASIX 120 MG PO (16:57)
[2025-03-23] MEDS: LOVENOX 40 MG SC (16:59)
[2025-03-23] MEDS: COREG 12.5 MG PO (20:10)
[2025-03-23] MEDS: DESYREL 150 MG PO (21:52)
[2025-03-24 03:22] VITALS: BP 103/63
[2025-03-24 06:00] VITALS: BMI 29.2
[2025-03-24 07:58] LABS: Hematocrit 46.9 % (39.0-52.0); Hemoglobin 15.6 g/dL (13.0-18.0); Mean Corp Hgb Conc. 33.3 g/dL (33.0-37.0); Mean Corpuscular Volume 85.0 fL (80.0-94.0); Platelet Count 445 10^3/uL (130-400); Red Cell Dist. Width 14.9 % (11.5-14.5)
[2025-03-24 08:12] VITALS: BP 92/58
[2025-03-24 08:24] LABS: Blood Urea Nitrogen 40 mg/dl (9-20); Calcium 10.0 mg/dl (8.4-10.2); Carbon Dioxide 26 mmol/L (22-30); Chloride 98 mmol/L (98-107); Estimated Creatinine Clearance 68 ml/min; Glucose 90 mg/dl (70-99); Magnesium 2.3 mg/dl (1.6-2.3); Potassium 4.0 mmol/L (3.5-5.1); Sodium 134 mmol/L (135-145); eGFR 58.15
--- NOTE | 2025-03-24 09:09 | W.PN.CARDCBS ---
Today's Communication / Plan
-
Okay for discharge
See below
Impression / Plan
-
PCP: Shani WHEELER in [place]
Cardiology: Dr. Bronson Page at [facility]
Impression:
Admitted with acute HFrEF 03/19/2025
Acute HFrEF
NICM EF 10 to 15% by echo 03/19/2025
Previously on home milrinone therapy in 2021 that was eventually stopped
Nonobstructive CAD by cardiac catheterization at [facility] 02/2020
Elevated troponin
[employer] single-chamber ICD
Family history of cardiomyopathy
Mild to moderate MR by echo 06/2022
Echo 03/2021: [facility] study, EF 10 to 15%, mild MR, RV dysfunction
Echo 06/2022 EF 13% with mild to moderate MR, moderate TR with moderate PHTN
Echo 03/19/2025: EF 10 to 15%, mild aortic regurgitation, mildly dilated ascending aorta up to 3.8 cm, inferior akinesis and LV wall motion is diffusely hypokinetic, LV cavity size 6.9 cm, mild concentric LVH, moderate to severe TR with PAP 59 mmHg,
RV systolic function mildly decreased
Cardiac catheterization at [facility] in 2019 with nonobstructive CAD
Plan:
Volume status seems good.
Creatinine has bumped to 1.5. No additional IV Lasix or metolazone.
Blood pressure is low but overall acceptable.
His proBNP is dramatically better, now 400.
At this point, it is reasonable to discharge him.
Recommended cardiac meds at discharge:
Spironolactone 25 mg a day, resume tomorrow,
Stop aspirin
Entresto 49/51 twice daily
Dapagliflozin 10 mg daily
Hydralazine 12.5 mg twice daily
Digoxin 250 mcg daily (new)
Furosemide 120 mg twice daily
Carvedilol 12.5 mg twice daily (reduced dose)
Stop bumetanide
Please check digoxin level and BMP over the next 3 to 5 days
Patient should follow-up to his primary yarn worker
HPI: Patient came to the ER with complaints of increasing SOB and edema prompting admission for acute HF and cardiology consultation. Patient generally follows with Dr. Bronson Page up at [facility]. While patient was briefly incarcerated
last year he saw a yarn worker with our office 04/01/2024 and at that time we obtained records from Dr. Page's office. Records reviewed in detail by me and summarized above. Patient has known nonischemic cardiomyopathy since at least 2019 with
EF 10 to 15% by an echo 03/2021. Patient previously had some of his workup done at [facility] including cardiac catheterization there in 2019 that showed nonobstructive disease. Patient later had hospitalization in 2020 where he was started on milrinone
therapy and discharged to rehab for chronic milrinone therapy. He also had a [employer] single-chamber ICD implanted at that time. Later in 2021 patient had a repeat RHC that showed compensated filling pressures and milrinone was stopped.
Patient then had periods of homelessness and incarceration, but is now living independently and working. Patient says that he noticed his typical symptoms of acute HF including SOB, ALMANZAR and orthopnea prompting him to call 911 last night. In the ER
his proBNP was 11,000 without previous for comparison and CXR showed mild CHF.
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
Subjective
Date of Service: March 24, 2025:
44-year-old man admitted with acute on chronic HFrEF with a EF of 10 to 15%. proBNP 11,000
PMH: nonischemic cardiomyopathy, EF 10 to 15%, ICD, nonobstructive CAD by catheterization 2019, mild to moderate MR, seizure disorder
Meds: Prozac 20 mg a day, Keppra 500 mg twice daily, spironolactone 25 mg a day, trazodone 150 mg at bedtime, aspirin 81 mg a day, Lovenox, carvedilol 25 mg twice daily, valsartan 49/51 twice daily dapagliflozin 10 mg daily, hydralazine 12.5 mg
twice daily, digoxin 250 mcg noon, furosemide currently written as 120 mg p.o. twice daily, received 80 mg of IV Lasix and metolazone 5 mg yesterday a.m.
58, pulse 60s weight is 97.6 kg down 1.4 kg intake and output -2520, lungs clear, head neck exam unremarkable, no S3 today, abdomen benign, no edema
Hemoglobin 15, platelets 445, BUN and creatinine are 40 and 1.5, creatinine had been 1.1, potassium is 4, proBNP is 410, had been 11,000
Objective
Labs:
03/24/25 07:13
03/24/25 07:13
Labs
Hgb 15.6 g/dL (13.0-18.0) 03/24/25 07:13
Hct 46.9 % (39.0-52.0) 03/24/25 07:13
Plt Count 445 10^3/uL (130-400) H D 03/24/25 07:13
Sodium 134 mmol/L (135-145) L 03/24/25 07:13
Potassium 4.0 mmol/L (3.5-5.1) 03/24/25 07:13
BUN 40 mg/dl (9-20) H 03/24/25 07:13
Creatinine 1.5 mg/dL (0.7-1.3) H 03/24/25 07:13
Glucose 90 mg/dl (70-99) 03/24/25 07:13
Vital Signs and I&O:
Vital Signs
Temp Pulse Resp BP Pulse Ox
36.5 C 65 16 92/58 97
03/24/25 08:12 03/24/25 08:12 03/24/25 08:12 03/24/25 08:12 03/24/25 08:12
Vital Signs
Temp Pulse Resp BP Pulse Ox
36.5 C 65 16 92/58 97
03/24/25 08:12 03/24/25 08:12 03/24/25 08:12 03/24/25 08:12 03/24/25 08:12
Intake & Output
03/22/25 03/23/25 03/24/25 03/25/25
07:59 07:59 07:59 07:59
Intake Total 720 / 720 720 / 720 480 / 480
Output Total 2049 / 2049 2550 / 2550 3000 / 3000
Balance -1330 / -1330 -1830 / -1830 -2520 / -2520
Physical Exam
Physical Exam
See above
[2025-03-24] MEDS: LASIX PO (09:30)
[2025-03-24] MEDS: ALDACTONE PO (09:30)
[2025-03-24] MEDS: LOW STRENGTH ASPIRIN 81 MG PO (09:32)
[2025-03-24] MEDS: PROZAC 20 MG PO (09:32)
[2025-03-24] MEDS: APRESOLINE 12.5 MG PO (09:32)
[2025-03-24] MEDS: ENTRESTO 49 MG/51 MG 1 TAB PO (09:32)
[2025-03-24] MEDS: FARXIGA 10 MG PO (09:32)
[2025-03-24] MEDS: KEPPRA 500 MG PO (09:32)
[2025-03-24] MEDS: COREG 12.5 MG PO (09:32)
--- NOTE | 2025-03-24 10:22 | CM ---
Pt is discharged today. Home, no needs. Pt states he will take a Lyft home today. Has no one to call for transport
[2025-03-24 11:05] VITALS: BP 100/62
--- NOTE | 2025-03-24 13:32 | W.DCSUMMARY ---
Discharge Summary
Discharge Data
Date of Admission: 03/19/25
Date of Discharge: 03/24/25
-
Pending Results: No
Hospital Course
Discharging Physician : Dr Mian Mathis
Disposition : To home
Primary care physician : Unknown
Principal Discharge diagnosis :
Acute on chronic systolic congestive heart failure
Troponin elevation
Chronic Discharge diagnosis :
Essential hypertension
Seizure disorder
Depression anxiety
Physical examination
General: Acute and chronically ill
HEENT: Normocephalic, Atraumatic and Moist Mucous Membranes
Respiratory: No crackles; Negative Wheezes, or Rhonchi
Cardiac: Regular Rhythm and S1/S2
GI: Soft, Nontender and Nondistended
Musculoskeletal: No Clubbing, No Cyanosis. minimal LE edema
Neuro: Awake, Alert and Oriented, no neurological deficits
Hospital Course :
Patient is a 44-year-old male with above-mentioned past medical history came to ER for new onset of shortness of breath. Patient have history of systolic heart failure and has been taking medication as prescribed, although patient noticed decreased
urine output over few days. In ER on evaluation patient noted to having heart failure exacerbation with elevated proBNP and chest x-ray is showing signs of pulmonary edema. Patient was started on IV diuretics and cardiology was involved in care.
Patient had troponin elevation as well which was felt to be nonischemic myocardial injury related. Patient had repeat echocardiogram which showed 10 to 15% ejection fraction with no new abnormality. Patient was started on GDMT as tolerated. Post
medical stabilization patient was discharged home on regimen of Lasix/digoxin and other GDMT. Patient to follow-up with primary cardiology in office. Patient was provided prescription for repeat blood work in 3 days.
Important imaging findings :
None
Procedure findings :
None
Discharge Plan
-
Patient Disposition: Home (Routine Discharge)
Discharge Diagnosis/Procedures: Acute on chronic systolic congestive heart failure.
Condition: Fair
Diet: 2 Gram Sodium and Restrict fluids to 48 oz
Activity: As tolerated
Driving Restrictions: As prior to admission
Bathing Restrictions: OK to Shower
Blood Work: BMP and Digoxin level check in 2-3 days
Specialty Instructions: Weigh Daily- Call MD for wt gain/loss 3 lbs overnight/5 lbs in 1 week
Instructions: *PCP/Other Skills Trainer Heart Failure Instructions
Referrals:
Wilner Castro MD [Active, Cardiology] - in one to two weeks
Bronson Page MD [Non-Admitting Privileges] - 03/27/25 11:00 am
Referral Note: You have an appointment to see Dr. Page's Physician Gear Tooth Lapping Machine Operator, on 03/27/2025 at 11:00 AM. The office address is [address] [place] [address] in [facility] [address] [facility]. If you need to reschedule
please call their office.
Prakash Mcleod CRNP [Non-Admitting Privileges, General] - in less than 1 week
Prescriptions:
New
digoxin 250 mcg (0.25 mg) Tablet
250 mcg PO NOON 30 Days Qty: 30 0RF
Jardiance 10 mg tablet
10 mg PO DAILY Qty: 30 0RF
carvedilol 25 mg Tablet
12.5 mg PO BID Qty: 60 1RF
furosemide 80 mg Tablet
120 mg PO BID AT 0800,1600 Qty: 60 2RF
aspirin 81 mg Tablet,Chewable
81 mg PO DAILY Qty: 30 2RF
(DME) Blood work
See Rx Instructions .Route .MEDSUPPLY Qty: 1 0RF
Rx Instructions:
BMP & Digoxin level check
Dx : Systolic HF
To be done in 48-72 hrs
Forward result to primary industrial automation specialist and primary care physician office
(DME) work note
See Rx Instructions .Route .MEDSUPPLY Qty: 1 0RF
Rx Instructions:
Mr Rhodes was hospitalized under our care from 03/19/25 to 03/24/25. He is free to go back to work from 03/28/25
Continued
levetiracetam 500 mg Tablet
500 mg PO BID
hydralazine 25 mg Tablet
25 mg PO DAILY
trazodone 150 mg Tablet
150 mg PO HS
fluoxetine 20 mg Capsule
20 mg PO DAILY
Rx Instructions:
At noon
sacubitril-valsartan [Entresto] 49-51 mg Tablet
1 tab PO BID
spironolactone 25 mg
25 mg PO DAILY
Discontinued
carvedilol 25 mg Tablet
25 mg PO BID
bumetanide 2 mg Tablet
2 mg PO DAILY
Discharge Orders:
Discharge Patient (As Directed); Ordered 03/24/25
Ordered By: Mian Mathis
Discharge Date and Time
Discharge Date/Time: 03/24/25 12:43
Print Language: SINHALA
--- NOTE | 2025-03-25 08:28 | PN.CDI ---
CDI
- -
CDI:
Physician Documentation Request
Admit Date: 03/19/25 02:12
Dear Doctor Del,
Patient admitted with CHF. Received IV diuretic.
Most recent creatinine:
Laboratory Tests
03/22/25 03/23/25 03/24/25
07:11 06:29 07:13
Creatinine 1.1 1.1 1.5 H
Could you please provide a diagnosis that supports the above lab abnormalities and additional evaluation/ monitoring:
KOTA
abnormal lab value clinically insignificant
Other
Use of terms such as suspected, likely, concern for, or probable (associated with a specific diagnosis that is being evaluated, monitored, or treated as if it exists) are acceptable and can be coded in the inpatient setting, when documented at the
time of discharge.
Thank you,
Radha Bone RN, BSN
CDI Specialist
tiger text
Please use your independent medical judgment in providing your response.
== END 2025-03-24 12:43 | disposition home or self-care (01) | DRG 291 ==
LOC: 4 EAST ACU 02:12
PROVIDERS: Hospitalist; Internal Medicine Cardiovascular Disease; Physician Assistant Medical; Student in an Organized Health Care Education/Training Program; ADMITTING PHYSICIAN Hospitalist; ATTENDING PHYSICIAN Hospitalist; CONSULT PHYSICIAN Internal Medicine Cardiovascular Disease; EMERGENCY PHYSICIAN Emergency Medicine
PROC: 3E02340 Introduction of Influenza Vaccine into Muscle, Percutaneous Approach (ICD-10-PCS; 2025-03-23)
DX: I11.0 Hypertensive heart disease with heart failure (principal); I50.23 Acute on chronic systolic (congestive) heart failure; G40.909 Epilepsy, unspecified, not intractable, without status epilepticus; I5A Non-ischemic myocardial injury (non-traumatic); F32.A Depression, unspecified; F41.9 Anxiety disorder, unspecified; Z95.810 Presence of automatic (implantable) cardiac defibrillator; Z87.891 Personal history of nicotine dependence; Z82.49 Family history of ischemic heart disease and other diseases of the circulatory system; Z83.3 Family history of diabetes mellitus; I42.8 Other cardiomyopathies; Z79.899 Other long term (current) drug therapy; I25.10 Atherosclerotic heart disease of native coronary artery without angina pectoris; Z23 Encounter for immunization
CPT/HCPCS: 71046; 80048; 80053; 80061; 83036; 83735; 83880; 84443; 84484; 85025; 85027; 93005; 93306; 94760; 96374; 99285; 99406